=== PATIENT | female | born 1955 | race Caucasian/White ===

== ENCOUNTER → 2020-04-17 | Outpatient (CLI) | payer BC ==
[~2020-04-17] MED LIST: ASCO500C PO; ASPI-630 PO; BUSP10TA PO; LOSA100T14 PO; MULT-496 PO; OXYC1TAB15 PO; PANT40TA77 PO; SUCR1TAB35 PO
== END | disposition home or self-care (01) ==
LOC: LAB 13:02
PROVIDERS: ATTEND Surgery
DX: Z01.818 Encounter for other preprocedural examination (principal); Z11.59 Encounter for screening for other viral diseases; K80.10 Calculus of gallbladder with chronic cholecystitis without obstruction
CPT/HCPCS: U0003-CS

== ENCOUNTER 2020-04-23 07:59 | Day surgery (SDC) | payer BC ==
[~2020-04-23] VITALS: Ht 162.6 cm; Wt 59.0 kg
[~2020-04-23 07:59] MED LIST changes: +0.9 % SODIUM CHLORIDE 20 ML VIAL. IJ ONE; +BUPIVACAINE-EPI 0.25%-1:200000 MPF 30 ML VIAL. INJ ONE; +HYDROmorphone 2 MG/ML VIAL IV PRN; +IOHEXOL 300 MG/ML 50 ML VIAL. ONE; +IV RINGERS,LACTATED 1000ML 1,000 ML IV SCH; +MORPHINE SULFATE 2 MG/ML VIAL. IV PRN; +ONDANSETRON PF 4 MG/2 ML VIAL. IV PRN; -OXYC1TAB15 PO; +PROCHLORPERAZINE 10 MG/2 ML VIAL. IV PRN; +SURGICEL HEMOSTAT 4X8 EACH. ONE; +ceFAZolin SODIUM IV Push 1 GM VIAL. IVP PRN; +fentaNYL PF VIAL 100 MCG/2 ML VIAL IV PRN
[2020-04-23] MEDS ORDERED: LIDOCAINE 2% PF 5 ML VIAL. ONE (08:24)
[2020-04-23] MEDS ORDERED: DEXAMETHASONE SOD PHOS 4 MG/ML VIAL ONE ×2 (08:24→09:45)
[2020-04-23] MEDS ORDERED: PROPOFOL 10 MG/ML (20ML) VIAL. IV ONE (08:24)
[2020-04-23] MEDS ORDERED: ONDANSETRON PF 4 MG/2 ML VIAL. ONE (08:24)
[2020-04-23] MEDS ORDERED: ROCURONIUM 50 MG/5 ML VIAL. ONE (08:25)
[2020-04-23] MEDS ORDERED: fentaNYL PF VIAL 100 MCG/2 ML VIAL ONE (08:26)
[2020-04-23] MEDS ORDERED: ceFAZolin SODIUM IV Push 1 GM VIAL. IVP ONE (08:39)
[2020-04-23] MEDS ORDERED: SUCCINYLCHOLINE 200 MG/10 ML VIAL. ONE (09:18)
[2020-04-23] MEDS ORDERED: DESFLURANE 31 TO 60 MINUTES IH ONE (09:39)
[2020-04-23] MEDS ORDERED: NEOSTIGMINE METHYLSULFATE 5 MG/5 ML SYRINGE. ONE (09:45)
[2020-04-23] MEDS ORDERED: GLYCOPYRROLATE 1 MG/5 ML VIAL. ONE (09:46)
--- NOTE | 2020-04-23 09:56 | PDOC4 ---
Operative Note Operative Note Date: April 23, 2020 at 934 Preoperative diagnosis: Chronic cholecystitis Postoperative diagnosis: Same Procedure: Laparoscopic cholecystectomy Surgeon: Marcellus Specimen: Gallbladder Dictation: Patient is a 64-year-old female is had right upper quadrant abdominal pain ultrasound showing gallstones. Procedure of laparoscopic cholecystectomy was explained to the patient detail was benefits were also discussed including bleeding infection injury to intra-abdominal contents possibly necessitating further or open operations alternatives to this procedure also discussed with the patient who seemed to understand and gave both verbal and written consent to have the procedure performed. Patient was taken to the operating room placed in supine position general anesthesia was initiated once patient was sleeping intubated her abdomen was prepped and draped in usual sterile fashion using ChloraPrep. Area just below the umbilicus was injected with quarter percent Marcaine with epinephrine incision was made 11 blade scalpel and a varies needle was placed within the abdomen creating pneumoperitoneum once this was complete 11 mm port was placed and a 5 mm camera is placed within the abdomen which was inspected no other abnormalities were noted. A 5 mm port was placed in the epigastrium a 5 mm port was placed in the right midabdomen and a 5 mm port was placed in the right lateral abdomen. The dome of the gallbladder is grasped retracted cephalad the infundibulum of the gallbladder is grasped retracted laterally exposing the triangle. The adherent tissues of the triangle were taken down with blunt dissection exposing the cystic duct and cystic artery both were doubly clipped and transected the gallbladder was taken off the liver with hook electrocautery placed in Endo Catch bag removed and the umbilicus the right upper quadrant is irrigated and suctioned dry hemostasis deemed to be appropriate and the pneumoperitoneum was reduced all ports were removed the fascial defect at the umbilicus was closed with a [id number] 0 Vicryl suture skin was reapproximated all port sites for subcuticular Monocryl Mastisol Steri-Strips and island dressings were applied. Patient was awakened and extubated in the operating room taken to recovery in stable condition all sponge instrument needle counts listed as correct estimated blood loss 5 mL [place] JACKSON MD Apr 23, 2020 09:56
--- NOTE | 2020-04-23 09:58 | DISCH ---
DISCHARGE INSTRUCTIONS Condition on Discharge Condition on Discharge: Stable Activity After Discharge Activity Instructions for Disc: Avoid exertion Other activity instructions: No lifting more than 20 pounds for 2 weeks Diet after Discharge Diet after Discharge: Low Fat Wound Incision Care Other wound/incision instructi: May shower in 24 hours Contacting the after DC Call your doctor for: If your condition worsens Follow-Up Follow up with: Dr. Jackson in 2 weeks AZ JACKSON MD Apr 23, 2020 09:58
[2020-04-23] MEDS ORDERED: OXYC1TAB15 PO (10:05)
[2020-04-23] MEDS ORDERED: oxyCODONE/APAP 5/325 1 TAB TABLET PO ONE (10:15)
[2020-04-23] MEDS: fentaNYL PF VIAL 100 MCG/2 ML VIAL IV PRN ×2 (10:21→10:29)
[2020-04-23 10:47] VITALS: BP 116/61
[2020-04-23] MEDS ORDERED: IPRATRPIUM/ALBUTEROL 0.5/2.5MG 3 ML NEBU. NEB ONE (11:00)
--- NOTE | 2020-04-27 17:06 | PATHOLOGY ---
[facility] Accession Number: [id number] . 01 Material submitted: . gallbladder - GALLBLADDER AND CONTENTS . 01 Clinical history: . Chronic cholecystitis with calculus . 02 Diagnosis: Gallbladder, laparoscopic cholecystectomy: - Chronic cholecystitis. . ([facility]:mm; 04/27/2020) [facility] 04/27/2020 1336 Local . 02 Comment: The gallbladder contains thick green bile. There are no calculi identified within the gallbladder lumen or specimen container. There is no evidence of malignancy. . ([facility]:mm; 04/27/2020) . 02 Electronically signed: . Jasen Fernandez MD, Pathologist NPI- [id number] . 01 Gross description: . The specimen is received in formalin, labeled "Butzin, Christen, gallbladder and contents" and consists of an intact green gallbladder measuring 8.5 x 3.6 x 2.6 cm. The margin is inked. Opening reveals thick green bile and no stones are present. The mucosa is dark green and granular with a wall thickness of 0.1 cm. No gross lesions or lymph nodes are identified. Neurology Professor sections are submitted in A1. ([facility]; 04/23/2020) [id number]/[id number] 04/23/2020 1746 Local . 02 Pathologist provided ICD-10: K81.1 . 02 CPT . 478824 Specimen Comment: A courtesy copy of this report has been sent to [phone], [phone] Specimen Comment: [id number] Specimen Comment: Report sent to / DR POLANCO Performed at: [address], [place], [place] [id number] MD Blanco Kirkland MD Phone: [phone] Performed at: 02 [facility] [address] [place] [id number] MD Jasen Fernandez MD Phone: [phone]
== END 2020-04-23 11:20 | disposition home or self-care (01) ==
LOC: SURG 07:59
PROVIDERS: ATTEND Surgery
DX: K81.1 Chronic cholecystitis (principal); Z79.82 Long term (current) use of aspirin; Z79.899 Other long term (current) drug therapy
CPT/HCPCS: 47562; 94640; A7015; J0330; J0690; J1100; J2405; J2704; J2710; J3010; J3490; J7030; Q9967